=== PATIENT | male | born 1945 | race Two or more races ===

== ENCOUNTER 2019-10-29 00:04 | Emergency (ER) | payer OTHER ==
[~2019-10-29] VITALS: Ht 165.1 cm; Wt 86.4 kg
[2019-10-29] MEDS ORDERED: LISI-661 PO (00:06)
[2019-10-29] MEDS ORDERED: CloNIDine HCL 0.2 MG TABLET PO ONE (00:45)
[2019-10-29] MEDS ORDERED: KETOROLAC TROMETHAMINE 30 MG/ML VIAL IVP ONE (00:45)
[2019-10-29] MEDS ORDERED: FAMOTIDINE 10 MG/ML 2 ML VIAL IV ONE (01:15)
[2019-10-29 01:23] LABS: BASOPHILS % (AUTO) 0.6 % (0.0-2.0); EOSINOPHILS % (AUTO) 1.5 % (1.0-6.0); HEMATOCRIT 44.1 % (41-53); HEMOGLOBIN 14.8 g/dL (13.5-17.5); LYMPHOCYTES # (AUTO) 2.8 K/uL (1.0-4.8); LYMPHOCYTES % (AUTO) 28.1 % (22.0-44.0); MEAN CORPUSCULAR HEMOGLOBIN 32.3 pg (26.0-34.0); MEAN CORPUSCULAR HGB CONC 33.6 G/dL (31.0-37.0); MEAN CORPUSCULAR VOLUME 96 fL (80-100); MONOCYTES # (AUTO) 0.8 K/uL (0.1-1.0); MONOCYTES % (AUTO) 7.7 % (2.0-9.0); NEUTROPHILS # (AUTO) 6.3 K/uL (1.8-7.7); NEUTROPHILS % (AUTO) 62.1 % (40.0-70.0); PLATELET COUNT (AUTO) 185 K/uL (150-450); RED BLOOD CELL COUNT(AUTO) 4.59 MIL/uL (4.50-5.90); RED CELL DISTRIBUTION WIDTH 12.9 % (11.5-14.5)
[2019-10-29 01:31] LABS: ANION GAP 7 mmol/L (8-16); CALCIUM, TOTAL 9.1 mg/dL (8.8-10.5); CARBON DIOXIDE 30 mmol/L (22-29); CHLORIDE 103 mmol/L (98-107); CREATININE 1.05 mg/dL (0.60-1.30); GLOMERULAR FILTR. RATE CALC > 60 mL/min (>60); GLUCOSE,RANDOM 103 mg/dL (70-110); POTASSIUM 4.7 mmol/L (3.5-5.1); SODIUM SERUM 140 mmol/L (136-145); UREA NITROGEN, BLOOD 23 mg/dL (7-18)
[2019-10-29 01:37] LABS: ALANINE AMINOTRANSFERASE 25 U/L (12-78); ALBUMIN 3.9 g/dL (3.4-5.0); ALKALINE PHOSPHATASE 114 U/L (46-116); ASPARTATE AMINOTRANSFERASE 23 U/L (15-37); BILIRUBIN,TOTAL 0.5 mg/dL (0.1-1.0); LIPASE 80 U/L (73-393); TOTAL PROTEIN, SERUM 7.7 g/dL (6.4-8.2)
[2019-10-29 02:56] LABS: APPEARANCE,URINE CLEAR (CLEAR); BILIRUBIN,URINE NEGATIVE (NEGATIVE); GLUCOSE, URINE (UA) NEGATIVE (NEGATIVE); KETONES,URINE NEGATIVE (NEGATIVE); LEUKOCYTE ESTERASE ,URINE NEGATIVE (NEGATIVE); NITRATE,URINE NEGATIVE (NEGATIVE); OCCULT BLOOD,URINE NEGATIVE (NEGATIVE); PROTEIN,URINE NEGATIVE (NEGATIVE); UROBILINOGEN,URINE 0.2 mg/dL (<=1.0)
[2019-10-29 03:05] VITALS: BP 117/84
== END 2019-10-29 03:28 | disposition home or self-care (01) ==
LOC: EMS 00:04
DX: K21.9 Gastro-esophageal reflux disease without esophagitis (principal); R10.32 Left lower quadrant pain; I10 Essential (primary) hypertension
CPT/HCPCS: 36415; 80053; 81003; 83690; 84484; 85025; 93005; 96374; 96375; 99284; J1885; J3490; 51701

== ENCOUNTER 2019-12-12 20:07 | Emergency (ER) | payer OTHER ==
[~2019-12-12] VITALS: Ht 165.1 cm; Wt 90.9 kg
[~2019-12-12 20:07] MED LIST: LISI-661 PO
[2019-12-12] MEDS ORDERED: CLON0.2T PO (20:15)
[2019-12-12 21:38] LABS: BASOPHILS % (AUTO) 0.6 % (0.0-2.0); EOSINOPHILS % (AUTO) 1.7 % (1.0-6.0); HEMATOCRIT 45.1 % (41-53); HEMOGLOBIN 14.7 g/dL (13.5-17.5); LYMPHOCYTES # (AUTO) 2.7 K/uL (1.0-4.8); LYMPHOCYTES % (AUTO) 27.4 % (22.0-44.0); MEAN CORPUSCULAR HEMOGLOBIN 31.8 pg (26.0-34.0); MEAN CORPUSCULAR HGB CONC 32.7 G/dL (31.0-37.0); MEAN CORPUSCULAR VOLUME 97 fL (80-100); MONOCYTES # (AUTO) 0.8 K/uL (0.1-1.0); MONOCYTES % (AUTO) 8.7 % (2.0-9.0); NEUTROPHILS % (AUTO) 61.6 % (40.0-70.0); PLATELET COUNT (AUTO) 210 K/uL (150-450); RED BLOOD CELL COUNT(AUTO) 4.63 MIL/uL (4.50-5.90); RED CELL DISTRIBUTION WIDTH 13.2 % (11.5-14.5)
[2019-12-12 21:54] LABS: D-DIMER 0.34 mg/L FEU (0.00-0.50); PROTHROMBIN TIME 10.5 SEC (9.4-11.6)
[2019-12-12 22:01] LABS: CALCIUM, TOTAL 8.6 mg/dL (8.8-10.5); CREATININE 1.27 mg/dL (0.60-1.30); POTASSIUM 3.8 mmol/L (3.5-5.1)
[2019-12-12 22:33] LABS: INFLUENZA TYPE A NEGATIVE FOR TYPE A (NEGATIVE); INFLUENZA TYPE B NEGATIVE FOR TYPE B (NEGATIVE)
[2019-12-12 22:58] LABS: ALBUMIN 3.9 g/dL (3.4-5.0); BILIRUBIN,TOTAL 0.6 mg/dL (0.1-1.0); C-REACTIVE PROTEIN QUANT 0.11 mg/dL (0.00-0.30); TOTAL PROTEIN, SERUM 8.3 g/dL (6.4-8.2)
[2019-12-12] MEDS ORDERED: CloNIDine HCL 0.2 MG TABLET PO ONE (23:15)
[2019-12-13] MEDS ORDERED: HydrALAZINE HCL 20 MG/ML VIAL IVP ONE (00:15)
[2019-12-13 01:15] VITALS: BP 159/90
== END 2019-12-13 01:32 | disposition home or self-care (01) ==
LOC: EMS 20:07
DX: I10 Essential (primary) hypertension (principal); R51 Headache; R05 Cough; Z20.828 Contact with and (suspected) exposure to other viral communicable diseases
CPT/HCPCS: 36415; 70450; 80053; 82550; 82728; 83605; 83615; 83880; 84484; 85025; 85379; 85384; 85610; 85730; 86140; 87040; 87635; 87804; 93005; 96374; 99285; J0360